=== PATIENT | female | born 1995 | race Caucasian/White ===

== ENCOUNTER → 2022-06-04 | Outpatient (CLI) | payer BC | LOC: LAB 06:48 | DX: E03.8 Other specified hypothyroidism (principal); E87.6 Hypokalemia ==

== ENCOUNTER → 2022-09-03 | Outpatient (CLI) | payer BC ==
[2022-09-03 06:59] LABS: POTASSIUM 3.5 mmol/L (3.5-5.1)
[2022-09-03 07:00] LABS: CALCIUM 8.6 mg/dL (8.3-10.5)
== END ==
LOC: LAB 06:27
DX: E87.6 Hypokalemia (principal); E03.8 Other specified hypothyroidism